=== PATIENT | male | born 1970 | race Asian ===

== ENCOUNTER 2023-12-25 09:52 | Day surgery (SDC) | payer OTHER ==
[~2023-12-25] VITALS: Ht 177.8 cm; Wt 83.0 kg
[2023-12-25 10:25] VITALS: O2SAT 99
[2023-12-25] MEDS ORDERED: MIDAZOLAM HCL 5 MG/5 ML VIAL ONE ×2 (12:29→12:38)
[2023-12-25] MEDS ORDERED: fentaNYL CITRATE/PF 100 MCG/2 ML AMP ONE ×2 (12:29→12:41)
[2023-12-25 15:49] VITALS: BP_SYST 126; PULSE 64; RESP 18
== END 2023-12-25 13:43 | disposition home or self-care (01) ==
LOC: SMU 09:52 → SDS 09:52
PROVIDERS: ATTEND Surgery
DX: K62.5 Hemorrhage of anus and rectum (principal); K64.9 Unspecified hemorrhoids; E78.5 Hyperlipidemia, unspecified; J45.909 Unspecified asthma, uncomplicated; Z98.890 Other specified postprocedural states
CPT/HCPCS: 45378; 99152; G0378; J2250; J3010